=== PATIENT | male | born 1985 | race Caucasian/White ===

== ENCOUNTER 2016-09-12 21:47 | Emergency (ER) | payer MEDICAID ==
[~2016-09-12] VITALS: Ht 165.1 cm; Wt 108.9 kg
[2016-09-12 21:54] VITALS: BP 152/73
--- NOTE | 2016-09-12 22:34 | NUR ---
TO ER OF1
--- NOTE | 2016-09-12 22:37 | NUR ---
C/O LT. HAND PAIN WITH SWALLEN X 2 DAYS. HIS FRIEND TOOTH CUT HIS HAND WHILE HOURSE PLAYING. NO MEICAL HX. ER TO [facility]EE, ALL OREDR EXECUTED.
--- NOTE | 2016-09-12 23:04 | NUR ---
Patient noted to have existing wounds upon arrival to ER. Wound covered with dressing. Physician informed.
--- NOTE | 2016-09-12 23:11 | NUR ---
MEDS GIVEN-NADR AT THIS TIME.
[2016-09-12] MEDS ORDERED: WATER STERILE 10 ML MC ONE (23:25)
[2016-09-12] MEDS: KETOROLAC 30 MG/ML VIAL IM ONE (23:26)
[2016-09-12] MEDS: HYDROcodone/APAP 5/325 MG 1 TAB TAB PO ONE (23:26)
[2016-09-12] MEDS: BACITRACIN OINT 500 UNITS/GM PKT TP ONE (23:27)
[2016-09-12] MEDS: AMPICILLIN/SULBACTAM 3 GM VIAL IM ONE (23:34)
--- NOTE | 2016-09-12 23:43 | NUR ---
Patient appears to be resting comfortably in bed. Vital Signs within normal limits. Respirations even and unlabored.
--- NOTE | 2016-09-12 23:43 | NUR ---
Patient discharged with v/s stable. Written and verbal after care instructions given and explained. Patient alert, oriented and verbalized understanding of instructions. Ambulatory with steady gait. All questions addressed prior to discharge. ID band removed. Patient advised to follow up with PMD. Rx of NORCO 5MG-325MG, AUGMENTIN 875MG,NAPROSYN 500MG given. Patient educated on indication of medication including possible reaction and side effects. Opportunity to ask questions provided and answered.
[2016-09-12 23:47] VITALS: BP 147/71
== END 2016-09-12 23:47 | disposition home or self-care (01) ==
LOC: MED 21:47
DX: L03.114 Cellulitis of left upper limb (principal); Z91.010 Allergy to peanuts; Z90.89 Acquired absence of other organs
CPT/HCPCS: 29125; 96372; 99284; J0295; J1885

== ENCOUNTER 2016-10-05 23:10 | Emergency (ER) | payer MEDICAID ==
[~2016-10-05] VITALS: Ht 165.1 cm; Wt 108.9 kg
[2016-10-05 23:30] VITALS: BP 130/72
--- NOTE | 2016-10-05 23:55 | NUR ---
PT TAKEN TO OF2
--- NOTE | 2016-10-06 00:19 | NUR ---
Dr. Velazquez evaluating patient
[2016-10-06 00:40] VITALS: BP 123/67
--- NOTE | 2016-10-06 00:40 | NUR ---
Patient discharged with v/s stable. Written and verbal after care instructions given and explained. Patient alert, oriented and verbalized understanding of instructions. Ambulatory with steady gait. All questions addressed prior to discharge. ID band removed. Patient advised to follow up with PMD. Rx of Soma given. Patient educated on indication of medication including possible reaction and side effects. Opportunity to ask questions provided and answered.
== END 2016-10-06 00:40 | disposition home or self-care (01) ==
LOC: MED 23:10
DX: R25.2 Cramp and spasm (principal); R03.0 Elevated blood-pressure reading, without diagnosis of hypertension; F17.210 Nicotine dependence, cigarettes, uncomplicated; Z71.6 Tobacco abuse counseling; Z91.018 Allergy to other foods